=== PATIENT | female | born 1995 ===

== ENCOUNTER → 2018-06-27 | Outpatient (CLI) | payer OTHER | LOC: ZCOL.LAB 18:11 | DX: Z11.3 Encounter for screening for infections with a predominantly sexual mode of transmission (principal); N89.8 Other specified noninflammatory disorders of vagina ==

== ENCOUNTER → 2018-11-17 | Outpatient (CLI) | payer OTHER | LOC: ZCOL.LAB 17:49 → COL.LAB 17:49 | DX: N89.8 Other specified noninflammatory disorders of vagina (principal) ==